=== PATIENT | female | born 1950 ===

== ENCOUNTER → 2017-05-05 | Outpatient (CLI) | payer OTHER ==
[~2017-05-05] MED LIST: ACEASPCAF PO; AMLO10 PO; AMOCLA875 PO; ASCO500 PO; CODACE30; CODACE30 PO; FISH1000 PO; FLAX PO; FLUO20; FOLI400 PO; GINKO PO; HYDACE5325; LISI20 PO; LOSARTAN POTASS25 MG PO; MULTIVITAMIN PO; PROP60 PO; SULTRIDS PO; SUMA25; VITAMIN B PO; VYTORIN; Zofran Odt4 MG PO
[2017-05-05 15:25] LABS: BASOPHILS ABSOLUTE AUTO 0.02 K/mm3 (0.00-0.23); BASOPHILS PERCENT AUTO 0 % (0-2); EOSINOPHILS ABSOLUTE AUTO 0.09 K/mm3 (0.00-0.68); EOSINOPHILS PERCENT AUTO 2 % (0-6); Hematocrit 40.6 % (33.0-51.0); IMMATURE GRAN ABSOLUTE AUTO 0.01 K/mm3 (0.00-0.10); IMMATURE GRAN PERCENT AUTO 0 % (0-1); LYMPHOCYTES ABSOLUTE AUTO 1.92 K/mm3 (0.84-5.20); LYMPHOCYTES PERCENT AUTO 34 % (21-46); MONOCYTES PERCENT AUTO 7 % (4-13); Mean Corpuscular HGB 30.8 pg (26.0-34.0); Mean Corpuscular HGB Conc 34.5 g/dL (31.5-36.5); Mean Corpuscular Volume 89 fL (80-100); Mean Platelet Volume 9.8 fL (9.1-12.4); NEUTROPHILS ABSOLUTE AUTO 3.19 K/mm3 (1.96-9.15); NEUTROPHILS PERCENT AUTO 57 % (41-73); Platelet Count 185 K/mm3 (150-400); RDW Coefficient Variation 12.1 % (11.7-14.2); RDW Standard Deviation 39.5 fL (35.1-46.3); Red Blood Cell Count 4.54 M/mm3 (3.80-5.20); White Blood Cell Count 5.63 K/mm3 (4.00-11.30)
[2017-05-05 15:39] LABS: Alanine Aminotransfer (ALT/SGP 41 U/L (12-78); Albumin, Blood 3.9 g/dL (3.4-5.0); Albumin/Globulin Ratio 1.1 (0.8-1.8); Alk Phos 64 U/L (40-126); Anion Gap 10 mmol/L (6-16); Aspartate Aminotrans (AST/SGOT 23 U/L (12-37); Bilirubin, Total 0.4 mg/dL (0.1-1.0); Blood Urea Nitrogen 13 mg/dL (8-24); Bun/Creatinine Ratio 14.1 (12.0-20.0); CO2, Blood 23 mmol/L (21-32); Calcium, Blood 9.1 mg/dL (8.5-10.1); Chloride, Blood 107 mmol/L (98-108); Creatinine, Blood 0.92 mg/dL (0.40-1.00); Globulin, Blood 3.5 g/dL (2.2-4.0); Glomerular Filtration Rate >60 (60-); Glucose, Blood 112 mg/dL (70-99); Potassium, Blood 3.9 mmol/L (3.5-5.5); Sodium, Blood 140 mmol/L (136-145); Total Protein, Blood 7.4 g/dL (6.4-8.2)
[2017-05-05 15:40] LABS: Troponin I <0.017 ng/mL (0.000-0.040)
[2017-05-07 05:08] LABS: HCV Non Reactive (NR)
== END ==
LOC: LAB EV 15:14
PROVIDERS: General Practice
DX: R07.9 Chest pain, unspecified (principal)
CPT/HCPCS: 80053; 84460; 84484; 85025; 86706; 86803; 87340; 87389

== ENCOUNTER → 2017-07-10 | Outpatient (CLI) | payer OTHER | END | disposition home or self-care (01) | LOC: LAB SHORT 08:42 → PLD 08:42 | DX: D22.5 Melanocytic nevi of trunk (principal); L57.0 Actinic keratosis | CPT/HCPCS: 88305; 88312 ==

== ENCOUNTER → 2018-05-22 | Outpatient (CLI) | payer OTHER | END | disposition home or self-care (01) | LOC: PLD 08:26 → LAB SHORT 08:26 | DX: D04.39 Carcinoma in situ of skin of other parts of face (principal) | CPT/HCPCS: 88305 ==

== ENCOUNTER → 2019-12-19 | Outpatient (CLI) | payer OTHER ==
[~2019-12-19] MED LIST changes: +BENZ100A PO; +CEFD300; +DEXA4 PO; +FURO40 PO; +Prozac20 MG PO; +VITAMIN D325 MC3 PO
== END | disposition home or self-care (01) ==
LOC: LAB SHORT 10:00 → LAB EV 10:00
DX: N39.0 Urinary tract infection, site not specified (principal)
CPT/HCPCS: 87077; 87086; 87186

== ENCOUNTER 2019-12-20 22:46 | Inpatient (IN) | payer OTHER ==
[~2019-12-20] VITALS: Ht 152.4 cm; Wt 79.9 kg
[~2019-12-20 22:46] MED LIST changes: -BENZ100A PO; -CEFD300; -DEXA4 PO; -FURO40 PO; -Prozac20 MG PO; -VITAMIN D325 MC3 PO
[2019-12-20] MEDS ORDERED: CEFD300 (23:34)
[2019-12-21 00:16] LABS: Source, Urine Clean Catch
[2019-12-21 00:33] LABS: Appearance, Urine Clear (Clear); Bilirubin, Urine Neg (Neg); Blood, Urine 2+ (Neg); Color, Urine Yellow (P-Yellow); Glucose Qualitative, Urine Neg (Neg); Ketones, Urine 1+ (Neg); Leukocyte Esterase, Urine Neg (Neg); Nitrite, Urine Neg (Neg); Protein, Urine 4+ (Neg); Urobilinogen, Urine NORM (Normal)
[2019-12-21 00:46] LABS: BASOPHILS PERCENT AUTO 0 % (0-2); EOSINOPHILS PERCENT AUTO 0 % (0-6); Hematocrit 34.7 % (33.0-51.0); Hemoglobin 11.4 g/dL (11.5-16.0); IMMATURE GRAN ABSOLUTE AUTO 0.01 K/mm3 (0.00-0.10); IMMATURE GRAN PERCENT AUTO 0 % (0-1); LYMPHOCYTES ABSOLUTE AUTO 0.62 K/mm3 (0.84-5.20); LYMPHOCYTES PERCENT AUTO 18 % (21-46); MONOCYTES ABSOLUTE AUTO 0.32 K/mm3 (0.16-1.47); MONOCYTES PERCENT AUTO 9 % (4-13); Mean Corpuscular HGB 29.9 pg (26.0-34.0); Mean Corpuscular HGB Conc 32.9 g/dL (31.5-36.5); Mean Corpuscular Volume 91 fL (80-100); Mean Platelet Volume 10.4 fL (9.1-12.4); NEUTROPHILS ABSOLUTE AUTO 2.58 K/mm3 (1.96-9.15); NEUTROPHILS PERCENT AUTO 73 % (41-73); Platelet Count 121 K/mm3 (150-400); RDW Coefficient Variation 11.9 % (11.7-14.2); Red Blood Cell Count 3.81 M/mm3 (3.80-5.20); White Blood Cell Count 3.53 K/mm3 (4.00-11.30)
[2019-12-21 00:48] LABS: Bacteria Few /hpf; Mucus Light (0-Heavy); Red Blood Cells, Urine Rare /hpf (0-2); Squamous Epithelial Cells Few /hpf (Few)
[2019-12-21 02:15] LABS: Alanine Aminotransfer (ALT/SGP 41 U/L (12-78); Albumin, Blood 2.7 g/dL (3.4-5.0); Albumin/Globulin Ratio 0.7 (0.8-1.8); Alk Phos 62 U/L (50-136); Anion Gap 7 mmol/L (6-16); Aspartate Aminotrans (AST/SGOT 30 U/L (12-37); Bilirubin, Total 0.4 mg/dL (0.1-1.0); Blood Urea Nitrogen 15 mg/dL (8-24); Bun/Creatinine Ratio 17.1 (12.0-20.0); CO2, Blood 25 mmol/L (21-32); Calcium, Blood 7.8 mg/dL (8.5-10.1); Chloride, Blood 113 mmol/L (98-108); Creatinine, Blood 0.88 mg/dL (0.40-1.00); Globulin, Blood 3.7 g/dL (2.2-4.0); Glomerular Filtration Rate >60 (60-); Glucose, Blood 113 mg/dL (70-99); Potassium, Blood 3.1 mmol/L (3.5-5.5); Sodium, Blood 145 mmol/L (136-145); Total Protein, Blood 6.4 g/dL (6.4-8.2); Troponin I <0.015 ng/mL (0.000-0.040)
[2019-12-21 05:18] LABS: Hematocrit 28.7 % (33.0-51.0); Hemoglobin 9.4 g/dL (11.5-16.0); Mean Corpuscular HGB 30.1 pg (26.0-34.0); Mean Corpuscular HGB Conc 32.8 g/dL (31.5-36.5); Mean Corpuscular Volume 92 fL (80-100); Mean Platelet Volume 10.5 fL (9.1-12.4); Platelet Count 149 K/mm3 (150-400); RDW Standard Deviation 40.9 fL (35.1-46.3); Red Blood Cell Count 3.12 M/mm3 (3.80-5.20); White Blood Cell Count 4.73 K/mm3 (4.00-11.30)
[2019-12-21 05:37] LABS: Anion Gap 7 mmol/L (6-16); Blood Urea Nitrogen 14 mg/dL (8-24); Bun/Creatinine Ratio 17.4 (12.0-20.0); CO2, Blood 25 mmol/L (21-32); Calcium, Blood 8.1 mg/dL (8.5-10.1); Chloride, Blood 114 mmol/L (98-108); Glomerular Filtration Rate >60 (60-); Glucose, Blood 109 mg/dL (70-99); Potassium, Blood 3.1 mmol/L (3.5-5.5); Sodium, Blood 146 mmol/L (136-145)
[2019-12-21] MEDS ORDERED: Prozac20 MG PO (05:38)
[2019-12-21] MEDS ORDERED: VITAMIN D325 MC3 PO (05:42)
--- NOTE | 2019-12-21 06:37 | NUR ---
SHIFT SUMMARY ASSUMED CARE OF PT AT 0520. PT IS A/OX4, DENIES N/T IN EXTREMITES. HEART SOUNDS REGUALR, TELE SHOWS SINUS @ 70, DENIES CP. LUNG SOUNDS ARE CRACKLES T/O, PT STATES SHE HAS SOB WITH ACTIVITY, PT IS ON 2L NC, PT HAS PRODUCTIVE BARKY COUGH. URINE CLEAR AND YELLOW. PT IS INDEPENDENT TO COMMODE. PT USING COMMODE DUE TO SOB. PT STATES THAT SHE HAS BEEN FEELING A LOT BETTER SINCE SHE GOT SOME FLUIDS AND NEASEA MEDICATION IN THE ED. CALL LIGHT IN REACH, BED IN LOWEST POSTION, WILL CONTINUE TO MONITOR UNTIL DAYSHIFT NURSE ARRIVES.
--- NOTE | 2019-12-21 18:19 | NUR ---
SHIFT SUMMARY PATIENT ALERT AND ORIENTED THIS SHIFT. PATIENT IS COVID POSITIVE. PATIENT STATES THAT HER CHEST/LUNGS HURT. PATIENT'S O2 SATS REMAIN IN THE 90S THROUGHOUT THIS SHIFT ON 2L O2. PATIENT INDEPENDENT TO THE BEDSIDE COMODE. PATIENT SHOWERED INDEPENDENTLY THIS SHIFT. PATIENT NAPPED THROUGHOUT THIS AFTERNOON. PATIENT CURRENTLY SITTING UP IN BED EATING DINNER.
[2019-12-22 05:22] LABS: Hematocrit 34.7 % (33.0-51.0); Hemoglobin 11.4 g/dL (11.5-16.0); Mean Corpuscular HGB 29.8 pg (26.0-34.0); Mean Corpuscular HGB Conc 32.9 g/dL (31.5-36.5); Mean Corpuscular Volume 91 fL (80-100); Mean Platelet Volume 10.4 fL (9.1-12.4); Platelet Count 132 K/mm3 (150-400); RDW Coefficient Variation 11.9 % (11.7-14.2); RDW Standard Deviation 39.8 fL (35.1-46.3); Red Blood Cell Count 3.82 M/mm3 (3.80-5.20); White Blood Cell Count 4.18 K/mm3 (4.00-11.30)
[2019-12-22 05:53] LABS: Anion Gap 7 mmol/L (6-16); Blood Urea Nitrogen 14 mg/dL (8-24); Bun/Creatinine Ratio 15.2 (12.0-20.0); CO2, Blood 25 mmol/L (21-32); Calcium, Blood 8.1 mg/dL (8.5-10.1); Chloride, Blood 111 mmol/L (98-108); Creatinine, Blood 0.92 mg/dL (0.40-1.00); Glomerular Filtration Rate >60 (60-); Glucose, Blood 104 mg/dL (70-99); Potassium, Blood 3.3 mmol/L (3.5-5.5); Sodium, Blood 143 mmol/L (136-145)
--- NOTE | 2019-12-22 06:26 | NUR ---
SHIFT SUMMARY: TEMP 99.9 THIS AM. VSS. 02 92% ON 3.5L VIA NC. EXERTIONAL DYSPNEA. FINE CRACKLES AUSCULTATED BILATERALLY. OCC DRY HACKING COUGH, NON-PRODUCTIVE. MED FOR HEADACHE, NAUSEA, COUGH- ALL RESPOND WELL TO PRNS. PT INDEPENDENT IN ROOM. COMMUNICATES NEEDS. NSR, 85 PER TELE SUPPLY SERVICE WORKER. NO ACUTE CHANGES AT THIS TIME. WILL CONT TO MONITOR.
--- NOTE | 2019-12-22 19:32 | NUR ---
SHIFT SUMMARY GAVE UPDATES TO AND DAUGHTER, BELA, VIA TELEPHONE. PER PT HAS MEMORY PROBLEMS.
--- NOTE | 2019-12-23 07:46 | NUR ---
12/23/19 0600 PT SLEPT ON AND OFF. VITALS STABLE. ISOLATION MAINTAINED. ONLY HAD TWO LOOSE BM'S THIS SHIFT. DECLINED NEED FOR MED TO CONTROL STOOLS. SHE WAS MEDICATED FOR COUGH,HEAD AND NECK PAIN AND SLIGHT NAUSEA.
--- NOTE | 2019-12-23 19:26 | NUR ---
SHIFT SUMMARY PT REPORTS OVERALL DECREASED SYMPTOMS AND INCREASED STRENGTH. NO C/O HEADACHE OR DIARRHEA THIS SHIFT.
--- NOTE | 2019-12-24 07:55 | NUR ---
12/24/19 0600 PT FELT GOOD LAST NIGHT AND DENIED ANY NAUSEA OR HWEADACHES. VITALS STABLE. LATER IN SHIFT PT WAS MEDICATED FOR COUGH. PT HAD MODERATE HEADACHE AND DECLINED EXCEDRIN 'because of the caffeine" AROUND 3 AM. RN PAGED FOR TYLENOL BUT THEN PT DECLINED IT H/A WAS RELEIVING. VITALS STABLE. GENERALLY PT HAD BETTER NIGHT THAN PREVIOUS NIGHT.
[2019-12-24 08:38] LABS: Hematocrit 36.3 % (33.0-51.0); Hemoglobin 12.2 g/dL (11.5-16.0); Mean Corpuscular HGB 29.8 pg (26.0-34.0); Mean Corpuscular HGB Conc 33.6 g/dL (31.5-36.5); Mean Corpuscular Volume 89 fL (80-100); Mean Platelet Volume 10.7 fL (9.1-12.4); Platelet Count 173 K/mm3 (150-400); RDW Coefficient Variation 11.6 % (11.7-14.2); RDW Standard Deviation 37.1 fL (35.1-46.3); Red Blood Cell Count 4.09 M/mm3 (3.80-5.20); White Blood Cell Count 4.27 K/mm3 (4.00-11.30)
[2019-12-24 08:55] LABS: Anion Gap 6 mmol/L (6-16); Blood Urea Nitrogen 22 mg/dL (8-24); CO2, Blood 27 mmol/L (21-32); Calcium, Blood 8.7 mg/dL (8.5-10.1); Chloride, Blood 110 mmol/L (98-108); Creatinine, Blood 0.92 mg/dL (0.40-1.00); Glomerular Filtration Rate >60 (60-); Glucose, Blood 122 mg/dL (70-99); Potassium, Blood 3.6 mmol/L (3.5-5.5); Sodium, Blood 143 mmol/L (136-145)
--- NOTE | 2019-12-24 18:53 | NUR ---
PATIENT IS ALERT AND ORIENTED. SHE IS INDEPENDENT IN HER ROOM. C/O NON-PRODUCTIVE COUGH. WEARS 2L O2 VIA NC. C/O HEADACHE, TREATED PER EMAR. NO NEW CONCERNS TODAY. WILL CONTINUE TO MONITOR
--- NOTE | 2019-12-25 05:19 | NUR ---
SLEPT WELL OVERNIGHT. NO COMPLAINTS OF PAIN. DID ASK FOR A TESSALON PEARLE WHICH SHE SAID HELPED A LOT. DELORES STILL HAS A VERY HARSH COUGH, HOWEVER, IT IS NONPRODUCTIVE. sHE IS HOPING SHE WILL BE ABLE TO BE DISCHARGED SOON SINCE SHE IS FEELING SO MUCH BETTER. UP INDEPENDENTLY IN ROOM. NO COMPLAINTS OF DISCOMFORT. ALSO REQUESTING TELE BE DC'D. DRINKING LOTS AND URINATING LOTS.
--- NOTE | 2019-12-25 17:11 | NUR ---
SHIFT SUMMARY PATIENT IS ALERT, ORIENTED, AND INDEPENDENT IN THE ROOM. PATIENT MEDICATED FOR HEADACHE 2X THIS SHIFT. STATES SHE TAKES MEDICATIONS FOR HEADACHE REGULARLY. PATIENT CONTINUES TO HAVE A HARSH COUGH. PATIENT REMAINS ON IV ANTIVIRAL MEDICATION. PATIENT COOPERATIVE WITH CARE THROUGHOUT THIS SHIFT. PATIENT DENIES FURTHER NEEDS AT THIS TIME.
--- NOTE | 2019-12-26 04:26 | NUR ---
SHIFT SUMMARY NO ACUTE CHANGES TO REPORT THIS SHIFT. PT HAS RESTED MOST OF THE NIGHT ON CPAP. DRESSING TO LLE DRAINING HEAVILY. WOUNDS CLEANED AND REDRESSED ON LLE. RLE DRESSING REMAINS CLEAN AND INTACT. PT MEDICATED FOR PAIN PRN WITH AFFECT. PT A/OX4 PLESANT WITH CARE. RESTFUL NIGHT. BED IN LOWEST POSITION, CALL LIGHT WITHIN REACH.
--- NOTE | 2019-12-26 06:18 | NUR ---
HEADACHE PT REQUESTED EXCEDRIN FOR JEROME. CALL PLACED TO PHARMACY TO HAVE MEDICATION SENT. WHEN MEDICATION ARRIVED PT HAD FALLEN BACK TO SLEEP. PLACING MEDICATION IN DRAWER TO BE GIVEN AT A LATER TIME WHEN SHE AWAKES.
--- NOTE | 2019-12-26 17:49 | NUR ---
SHIFT SUMMARY PATIENT ALERT, ORIENTED, INDEPENDENT IN THE ROOM. PATIENT REPORTS LESS COUGHING THAN PREVIOUSLY. PATIENT DENIES MOST NEEDS THIS SHIFT. PATIENT CALM AND COOPERATIVE IN THE ROOM. PATIENT REMAINS ON IV ANTIVIRAL MEDICATIONS. PATIENT SITTING UP IN BED EATING DINNER.
--- NOTE | 2019-12-27 04:11 | NUR ---
SENIOR OPERATIONS ANALYST SUMMARY PT A/O X4. INDEPENDENT IN ROOM. PLEASANT AND COOPERATIVE. PT TOOK A SHOWER TONIGHT. RM AIR MAINTAING SATS AT 92% OR ABOVE. SOME SOB WITH EXERTION. OCCASIONAL COUGHS. PLEASANT AND COOPERATIVE. NO ACUTE CHANGES.
--- NOTE | 2019-12-27 18:44 | NUR ---
SHIFT SUMMARY: NO ACUTE CHANGES TO REPORT [facility]SI SHIFT. PT A&O; CALM AND COOPERATIVE WITH CARE. MEDICATED FOR JEROME PAIN PER EMAR. FINAL DOSE OF REMDESIVIR ADMINISTERED THIS SHIFT. HOME O2 EVAL THIS SHIFT; PT DOES NOT REQUIRE HOME O2. ORAL STEROIDS CONTINUING. WCTM.
--- NOTE | 2019-12-28 06:31 | NUR ---
SHIFT SUMMARY PATIENT ALERT AND ORIENTED. HAD NO COMPLAINTS OF PAIN OR SHORTNESS OF BREATH.IV PATENT AND FLUSHED. BED IN LOWEST POSITION WITH WHEELS LOCKED. CALL LIGHT WITHIN REACH. REPORT GIVEN TO ONCOMING RN.
[2019-12-28] MEDS ORDERED: BENZ100A PO (11:02)
[2019-12-28] MEDS ORDERED: DEXA4 PO (11:03)
[2019-12-28] MEDS ORDERED: FURO40 PO (11:04)
--- NOTE | 2019-12-28 14:45 | NUR ---
PATIENT DISCHARGE: PATIENT DISCHARGED TO HOME THIS SHIFT; PATIENT IS COVID POSITIVE: PATIENT INSTRUCTED TO REMAIN IN ISOLATION UNTIL 10 DAYS PAST TIME WHEN SHE IS ASYMPTOMATIC. MEDICATION RECONCILIATION COMPLETED; MED LIST FAXED TO [facility]. ADDITIONAL DISCHARGE EDUCATION COMPLETED WITH PATIENT. PATIENT TRANSPORTED TO EXIT BY [facility] STAFF WITH WHEELCHAIR AT 1336. PATIENT DEPARTED [facility] VIA PRIVATE AUTO.
== END 2019-12-28 13:36 | disposition home or self-care (01) | DRG 177 ==
LOC: ER 22:46 → MEDS 12-21 03:06 → ERHOLD 12-21 03:06 → MEDS 12-21 05:27 → ENPENDDIS 12-28 10:08 → MEDS 12-28 13:36
PROVIDERS: Internal Medicine; Physician Assistant; ADMIT Internal Medicine
PROC: 8E0ZXY6 Isolation (ICD-10-PCS; principal; 2019-12-21)
DX: U07.1 COVID-19 (principal); J96.01 Acute respiratory failure with hypoxia; J12.89 Other viral pneumonia; N39.0 Urinary tract infection, site not specified; J98.11 Atelectasis; E87.6 Hypokalemia; D64.9 Anemia, unspecified; D69.6 Thrombocytopenia, unspecified; B96.20 Unspecified Escherichia coli [E. coli] as the cause of diseases classified elsewhere; E78.5 Hyperlipidemia, unspecified; Z87.891 Personal history of nicotine dependence; I11.0 Hypertensive heart disease with heart failure; I50.9 Heart failure, unspecified
CPT/HCPCS: 36415; 71046; 80048; 80053; 81001; 83690; 83880; 84145; 84484; 85025; 85027; 85379; 87040; 87086; 93005; 93010; 94761; 96361; 96365; 96374; 96375; 99285-25; A9270; J0696; J0780; J1650; J1885; J1940; J2405; J7030; J7050; U0002

== ENCOUNTER → 2021-03-10 | Outpatient (CLI) | payer OTHER ==
[~2021-03-10] MED LIST changes: +BENZ100A PO; +CEFD300; +DEXA4 PO; +FURO40 PO; +Prozac20 MG PO; +VITAMIN D325 MC3 PO
== END | disposition home or self-care (01) ==
LOC: LAB SHORT 07:41
DX: L57.0 Actinic keratosis (principal)
CPT/HCPCS: 88305

== ENCOUNTER → 2022-07-08 | Outpatient (CLI) | payer OTHER ==
[2022-07-09 12:56] LABS: Candida species (DNA Probe) Negative (NEGATIVE); G. vaginalis (DNA Probe) Negative (NEGATIVE); T. vaginalis (DNA Probe) Negative (NEGATIVE)
[2022-07-11 02:09] LABS: CHLAMYDIA TRACHOMATIS, NAA Negative (Negative)
== END | disposition home or self-care (01) ==
LOC: LAB 10:53 → LAB SHORT 10:53
PROVIDERS: Physician Assistant
DX: L29.3 Anogenital pruritus, unspecified (principal)
CPT/HCPCS: 87077; 87086; 87186; 87480; 87491; 87510; 87591; 87660

== ENCOUNTER → 2022-07-13 | Outpatient (CLI) | payer OTHER ==
[2022-07-13 15:48] LABS: Alanine Aminotransfer (ALT/SGP 38 U/L (12-78); Albumin, Blood 3.9 g/dL (3.4-5.0); Albumin/Globulin Ratio 1.2 (0.8-1.8); Alk Phos 83 U/L (50-136); Anion Gap 4 mmol/L (6-16); Aspartate Aminotrans (AST/SGOT 23 U/L (12-37); Bilirubin, Total 0.6 mg/dL (0.1-1.0); Blood Urea Nitrogen 21 mg/dL (8-24); Bun/Creatinine Ratio 22.5 (12.0-20.0); CHOL/HDL RATIO 5.3; CO2, Blood 24 mmol/L (21-32); Calcium, Blood 9.1 mg/dL (8.5-10.1); Chloride, Blood 111 mmol/L (98-108); Cholesterol 187 mg/dL (50-200); Creatinine, Blood 0.93 mg/dL (0.40-1.00); Globulin, Blood 3.2 g/dL (2.2-4.0); Glomerular Filtration Rate 65 (60-); Glucose, Blood 98 mg/dL (70-99); HDL Cholesterol 35 mg/dL (>39); Potassium, Blood 3.8 mmol/L (3.5-5.5); Sodium, Blood 139 mmol/L (136-145); Total Protein, Blood 7.1 g/dL (6.4-8.2); Triglycerides 427 mg/dL (30-160); Very Low Density Lipoprot Chol Unable to Calculate mg/dL (6-32)
[2022-07-13 15:49] LABS: LDL/HDL RATIO Unable to Calculate; Low Density Lipoprotein Chol Unable to Calculate mg/dL (0-110)
[2022-07-13 15:53] LABS: BASOPHILS ABSOLUTE AUTO 0.02 K/mm3 (0.00-0.23); BASOPHILS PERCENT AUTO 0 % (0-2); EOSINOPHILS ABSOLUTE AUTO 0.16 K/mm3 (0.00-0.68); EOSINOPHILS PERCENT AUTO 3 % (0-6); Hematocrit 41.7 % (33.0-51.0); Hemoglobin 14.7 g/dL (11.5-16.0); IMMATURE GRAN ABSOLUTE AUTO 0.01 K/mm3 (0.00-0.10); IMMATURE GRAN PERCENT AUTO 0 % (0-1); LYMPHOCYTES ABSOLUTE AUTO 1.87 K/mm3 (0.84-5.20); LYMPHOCYTES PERCENT AUTO 38 % (21-46); MONOCYTES ABSOLUTE AUTO 0.46 K/mm3 (0.16-1.47); MONOCYTES PERCENT AUTO 9 % (4-13); Mean Corpuscular HGB 31.5 pg (26.0-34.0); Mean Corpuscular HGB Conc 35.3 g/dL (31.5-36.5); Mean Corpuscular Volume 90 fL (80-100); Mean Platelet Volume 10.7 fL (9.1-12.4); NEUTROPHILS ABSOLUTE AUTO 2.37 K/mm3 (1.96-9.15); NEUTROPHILS PERCENT AUTO 49 % (41-73); Platelet Count 186 K/mm3 (150-400); Red Blood Cell Count 4.66 M/mm3 (3.80-5.20); White Blood Cell Count 4.89 K/mm3 (4.00-11.30)
== END | disposition home or self-care (01) ==
LOC: LAB SHORT 09:25
PROVIDERS: Hospitalist
DX: I10 Essential (primary) hypertension (principal); E78.5 Hyperlipidemia, unspecified
CPT/HCPCS: 80053; 80061; 85025

== ENCOUNTER → 2022-12-13 | Outpatient (CLI) | payer OTHER | END | disposition home or self-care (01) | LOC: PLD 07:31 → LAB SHORT 07:31 | DX: D23.4 Other benign neoplasm of skin of scalp and neck (principal) | CPT/HCPCS: 88305; 88312 ==

== ENCOUNTER 2024-01-28 18:30 | Emergency (ER) | payer OTHER ==
[~2024-01-28] VITALS: Ht 167.6 cm; Wt 81.2 kg
[2024-01-28] MEDS ORDERED: Ondansetron HCl 2 MG / ML 2ML Vial IV ONE (18:50)
[2024-01-28 19:20] LABS: BASOPHILS ABSOLUTE AUTO 0.03 K/mm3 (0.00-0.23); BASOPHILS PERCENT AUTO 0 % (0-2); EOSINOPHILS ABSOLUTE AUTO 0.03 K/mm3 (0.00-0.68); EOSINOPHILS PERCENT AUTO 0 % (0-6); Hematocrit 35.3 % (33.0-51.0); Hemoglobin 12.2 g/dL (11.5-16.0); IMMATURE GRAN ABSOLUTE AUTO 0.02 K/mm3 (0.00-0.10); IMMATURE GRAN PERCENT AUTO 0 % (0-1); LYMPHOCYTES ABSOLUTE AUTO 1.45 K/mm3 (0.84-5.20); LYMPHOCYTES PERCENT AUTO 18 % (21-46); MONOCYTES PERCENT AUTO 13 % (4-13); Mean Corpuscular HGB 30.3 pg (26.0-34.0); Mean Corpuscular HGB Conc 34.6 g/dL (31.5-36.5); Mean Corpuscular Volume 88 fL (80-100); Mean Platelet Volume 10.1 fL (9.1-12.4); NEUTROPHILS ABSOLUTE AUTO 5.44 K/mm3 (1.96-9.15); NEUTROPHILS PERCENT AUTO 68 % (41-73); Platelet Count 121 K/mm3 (150-400); RDW Coefficient Variation 11.9 % (11.7-14.2); RDW Standard Deviation 38.5 fL (35.1-46.3); Red Blood Cell Count 4.02 M/mm3 (3.80-5.20); White Blood Cell Count 7.97 K/mm3 (4.00-11.30)
[2024-01-28 19:45] LABS: Albumin, Blood 3.2 g/dL (3.4-5.0); Albumin/Globulin Ratio 0.9 (0.8-1.8); Bilirubin, Total 1.1 mg/dL (0.1-1.0); Calcium, Blood 9.2 mg/dL (8.5-10.1); Creatinine, Blood 1.25 mg/dL (0.40-1.00); Globulin, Blood 3.4 g/dL (2.2-4.0); Potassium, Blood 3.3 mmol/L (3.5-5.5); Total Protein, Blood 6.6 g/dL (6.4-8.2)
[2024-01-28] MEDS ORDERED: Ketorolac Tromethamine 15mg Vial IV ONE (21:25)
[2024-01-28] MEDS ORDERED: Acetaminophen 500 MG Tab PO ONE (21:40)
[2024-01-28] MEDS ORDERED: Lactated Ringer's 1,000 ML IV ONE (21:40)
[2024-01-28 21:58] LABS: Source, Urine Clean Catch
[2024-01-28 22:03] LABS: Bilirubin, Urine Neg (Neg); Blood, Urine 2+ (Neg); Glucose Qualitative, Urine Neg (Neg); Ketones, Urine Neg (Neg); Leukocyte Esterase, Urine 3+ (Neg); Nitrite, Urine Neg (Neg); Protein, Urine 1+ (Neg); Specific Gravity, Urine 1.005 (1.003-1.022); Urobilinogen, Urine NORM (Normal); pH, Urine 6.5 (5.0-8.0)
[2024-01-28 22:08] LABS: Appearance, Urine Hazy (Clear); Color, Urine Yellow (P-Yellow)
[2024-01-28 22:09] LABS: Bacteria Many /hpf; Red Blood Cells, Urine 0-2 /hpf (0-2); Squamous Epithelial Cells Not Seen /hpf (Few); White Blood Cells, Urine 50-100 /hpf (0-5)
[2024-01-28] MEDS ORDERED: CefTRIAXone Sodium 1,000 MG in NS 100 ML IV ONE (22:20)
[2024-01-28 22:37] LABS: Influenza A, PCR NEGATIVE (NEGATIVE); Influenza B, PCR NEGATIVE (NEGATIVE); Resp Syncytial Virus, PCR NEGATIVE (NEGATIVE); SARS-Cov-2 (COVID-19) PCR, MMC NEGATIVE (NEGATIVE)
[2024-01-28] MEDS ORDERED: CEFD300 PO (23:25)
[2024-01-28 23:52] VITALS: BP 139/66
== END 2024-01-28 23:52 | disposition home or self-care (01) ==
LOC: ER 18:30
PROVIDERS: Emergency Medicine; Student in an Organized Health Care Education/Training Program
DX: N39.0 Urinary tract infection, site not specified (principal); I10 Essential (primary) hypertension; Z88.8 Allergy status to other drugs, medicaments and biological substances; Z79.899 Other long term (current) drug therapy; Z87.891 Personal history of nicotine dependence; Z11.52 Encounter for screening for COVID-19
CPT/HCPCS: 0241U; 71046; 80053; 81001; 83690; 83880; 84484; 85025; 93005; 93010; 96365; 96375; 99285-25; A9270; J0696; J2405; J7120

== ENCOUNTER → 2024-02-11 | Outpatient (CLI) | payer OTHER ==
[~2024-02-11] MED LIST changes: +CEFD300 PO
[2024-02-11 15:19] LABS: BASOPHILS ABSOLUTE AUTO 0.03 K/mm3 (0.00-0.23); BASOPHILS PERCENT AUTO 1 % (0-2); EOSINOPHILS ABSOLUTE AUTO 0.16 K/mm3 (0.00-0.68); EOSINOPHILS PERCENT AUTO 3 % (0-6); Hematocrit 39.3 % (33.0-51.0); IMMATURE GRAN ABSOLUTE AUTO 0.01 K/mm3 (0.00-0.10); IMMATURE GRAN PERCENT AUTO 0 % (0-1); LYMPHOCYTES ABSOLUTE AUTO 1.68 K/mm3 (0.84-5.20); LYMPHOCYTES PERCENT AUTO 27 % (21-46); MONOCYTES ABSOLUTE AUTO 0.43 K/mm3 (0.16-1.47); MONOCYTES PERCENT AUTO 7 % (4-13); Mean Corpuscular HGB 29.8 pg (26.0-34.0); Mean Corpuscular HGB Conc 33.1 g/dL (31.5-36.5); Mean Corpuscular Volume 90 fL (80-100); Mean Platelet Volume 9.9 fL (9.1-12.4); NEUTROPHILS ABSOLUTE AUTO 3.88 K/mm3 (1.96-9.15); NEUTROPHILS PERCENT AUTO 63 % (41-73); Platelet Count 257 K/mm3 (150-400); RDW Coefficient Variation 12.3 % (11.7-14.2); RDW Standard Deviation 40.5 fL (35.1-46.3); Red Blood Cell Count 4.36 M/mm3 (3.80-5.20); White Blood Cell Count 6.19 K/mm3 (4.00-11.30)
[2024-02-11 15:36] LABS: Thyroid Stimulating Hormone 3.24 uIU/mL (0.360-4.800)
[2024-02-11 15:37] LABS: Bun/Creatinine Ratio 23.1 (12.0-20.0); Creatinine, Blood 0.82 mg/dL (0.40-1.00); Potassium, Blood 3.8 mmol/L (3.5-5.5)
== END | disposition home or self-care (01) ==
LOC: LAB 11:45 → LAB SHORT 11:45
PROVIDERS: Hospitalist
DX: D69.6 Thrombocytopenia, unspecified (principal); I10 Essential (primary) hypertension
CPT/HCPCS: 80048; 84443; 85025

== ENCOUNTER → 2024-03-13 | Outpatient (CLI) | payer OTHER ==
[2024-03-13 14:48] LABS: BASOPHILS ABSOLUTE AUTO 0.01 K/mm3 (0.00-0.23); BASOPHILS PERCENT AUTO 0 % (0-2); EOSINOPHILS ABSOLUTE AUTO 0.05 K/mm3 (0.00-0.68); EOSINOPHILS PERCENT AUTO 1 % (0-6); Hemoglobin 13.2 g/dL (11.5-16.0); IMMATURE GRAN ABSOLUTE AUTO 0.02 K/mm3 (0.00-0.10); IMMATURE GRAN PERCENT AUTO 0 % (0-1); LYMPHOCYTES ABSOLUTE AUTO 1.05 K/mm3 (0.84-5.20); LYMPHOCYTES PERCENT AUTO 16 % (21-46); MONOCYTES ABSOLUTE AUTO 0.45 K/mm3 (0.16-1.47); MONOCYTES PERCENT AUTO 7 % (4-13); Mean Corpuscular HGB 29.1 pg (26.0-34.0); Mean Corpuscular Volume 88 fL (80-100); Mean Platelet Volume 10.9 fL (9.1-12.4); NEUTROPHILS ABSOLUTE AUTO 5.01 K/mm3 (1.96-9.15); NEUTROPHILS PERCENT AUTO 76 % (41-73); Platelet Count 153 K/mm3 (150-400); RDW Coefficient Variation 13.7 % (11.7-14.2); RDW Standard Deviation 44.1 fL (35.1-46.3); Red Blood Cell Count 4.54 M/mm3 (3.80-5.20); White Blood Cell Count 6.59 K/mm3 (4.00-11.30)
== END | disposition home or self-care (01) ==
LOC: LAB SHORT 13:24 → LAB 13:24
PROVIDERS: Hospitalist
DX: N30.01 Acute cystitis with hematuria (principal)
CPT/HCPCS: 81001; 85025; 87086

== ENCOUNTER → 2024-03-13 | Outpatient (CLI) | payer OTHER ==
[2024-03-13 14:23] LABS: Source, Urine Voided
[2024-03-13 15:21] LABS: Appearance, Urine Hazy (Clear); Bilirubin, Urine Neg (Neg); Blood, Urine Neg (Neg); Color, Urine Yellow (P-Yellow); Glucose Qualitative, Urine Neg (Neg); Ketones, Urine Neg (Neg); Leukocyte Esterase, Urine 1+ (Neg); Nitrite, Urine Neg (Neg); Protein, Urine 3+ (Neg); Urobilinogen, Urine NORM (Normal)
[2024-03-13 15:35] LABS: Bacteria Few /hpf; Calcium Oxalate Crystals Many /hpf; Red Blood Cells, Urine 0-2 /hpf (0-2); Squamous Epithelial Cells Few /hpf (Few)
== END | disposition home or self-care (01) ==
LOC: LAB SHORT 12:50 → LAB 12:50
PROVIDERS: Hospitalist
DX: N30.01 Acute cystitis with hematuria (principal)
CPT/HCPCS: 81001; 87086